=== PATIENT | male | born 1975 | race Caucasian/White ===

== ENCOUNTER 2021-07-18 20:03 | Inpatient (IN) | payer BC ==
[~2021-07-18] VITALS: Ht 182.9 cm; Wt 122.5 kg
[~2021-07-18 20:03] MED LIST: IBUPROFEN800 MG PO; NORCO 5-325 TA1 EACH PO
[2021-07-18 21:05] LABS: HEMOGLOBIN 15.7 gm/dl (14.0-17.5); RED BLOOD COUNT 4.99 M/UL (4.20-5.50); WHITE BLOOD COUNT 1.9 K/UL (4.5-11.0)
[2021-07-18 21:22] LABS: BUN/CREATININE RATIO 14 (0-10)
[2021-07-19] MEDS ORDERED: ASPIRIN CHEWABL81 MG PO (01:06)
[2021-07-19] MEDS ORDERED: DOXYCYCLINE HY100 M2 PO (01:06)
[2021-07-19] MEDS ORDERED: DECADRON6 MG PO (01:06)
[2021-07-19] MEDS ORDERED: BLOOD TEST (01:13)
[2021-07-19] MEDS ORDERED: ADULT LOW DOSE81 MG PO (11:19)
[2021-07-19] MEDS ORDERED: PREDNISONE10 M1 PO (11:20)
[2021-07-19] MEDS ORDERED: ADVAIR HFA 230/1 INH INH (11:22)
[2021-07-19] MEDS ORDERED: TESTOSTERO200 MG/1 M IM (11:22)
[2021-07-19] MEDS ORDERED: METFORMIN HCL500 MG PO (11:23)
[2021-07-20 06:23] LABS: HEMOGLOBIN 14.2 gm/dl (14.0-17.5); RED BLOOD COUNT 4.66 M/UL (4.20-5.50)
[2021-07-20 06:28] LABS: WHITE BLOOD COUNT 3.9 K/UL (4.5-11.0)
[2021-07-20 06:44] LABS: BUN/CREATININE RATIO 21 (0-10)
[2021-07-21 08:06] LABS: HEMOGLOBIN 13.8 gm/dl (14.0-17.5); RED BLOOD COUNT 4.72 M/UL (4.20-5.50)
[2021-07-21 08:11] LABS: BUN/CREATININE RATIO 25 (0-10)
[2021-07-21 08:14] LABS: WHITE BLOOD COUNT 5.6 K/UL (4.5-11.0)
[2021-07-22 12:02] LABS: HEMOGLOBIN 14.1 gm/dl (14.0-17.5); RED BLOOD COUNT 4.54 M/UL (4.20-5.50); WHITE BLOOD COUNT 7.8 K/UL (4.5-11.0)
[2021-07-22 12:29] LABS: BUN/CREATININE RATIO 28 (0-10)
[2021-07-23] MEDS ORDERED: AZITHROMYCIN500 MG PO (08:39)
[2021-07-23] MEDS ORDERED: MEDROL DOSEPAK 24 MG PO (08:41)
[2021-07-23] MEDS ORDERED: PROVENTIL HFA6.7 GM INH (08:41)
== END 2021-07-23 13:40 | disposition home or self-care (01) | DRG 871 ==
LOC: ER1 20:03 → CDU 07-19 05:22 → M/S 07-19 05:22
PROVIDERS: Internal Medicine; ADMIT Internal Medicine
PROC: 8E0ZXY6 Isolation (ICD-10-PCS; principal; 2021-07-19)
PROC: XW033E5 Introduction of Remdesivir Anti-infective into Peripheral Vein, Percutaneous Approach, New Technology Group 5 (ICD-10-PCS; 2021-07-19)
PROC: 3E0333Z Introduction of Anti-inflammatory into Peripheral Vein, Percutaneous Approach (ICD-10-PCS; 2021-07-19)
PROC: XW033G6 Introduction of REGN-COV2 Monoclonal Antibody into Peripheral Vein, Percutaneous Approach, New Technology Group 6 (ICD-10-PCS; 2021-07-19)
DX: A41.89 Other specified sepsis (principal); U07.1 COVID-19; J12.82 Pneumonia due to coronavirus disease 2019; J96.01 Acute respiratory failure with hypoxia; E87.1 Hypo-osmolality and hyponatremia; R65.20 Severe sepsis without septic shock; E11.65 Type 2 diabetes mellitus with hyperglycemia; E66.01 Morbid (severe) obesity due to excess calories; J45.909 Unspecified asthma, uncomplicated; Z98.890 Other specified postprocedural states; Z80.1 Family history of malignant neoplasm of trachea, bronchus and lung; Z79.82 Long term (current) use of aspirin; Z79.84 Long term (current) use of oral hypoglycemic drugs; Z79.899 Other long term (current) drug therapy; Z23 Encounter for immunization; Z68.36 Body mass index [BMI] 36.0-36.9, adult
CPT/HCPCS: 36415; 36600; 71045; 80053; 82803; 82962; 83605; 83615; 83690; 85025; 85027; 85379; 86140; 87040; 94640; 94664; 94760; 96374; 96375; 97161; 99285; J0456; J0696; J1100; J1650; J7030; M0243; Q9967; U0002

== ENCOUNTER → 2021-08-12 | Outpatient (CLI) | payer BC ==
[~2021-08-12] MED LIST changes: +ADULT LOW DOSE81 MG PO; +ADVAIR HFA 230/1 INH INH; +ASPIRIN CHEWABL81 MG PO; +AZITHROMYCIN500 MG PO; +BLOOD TEST; +DECADRON6 MG PO; +DOXYCYCLINE HY100 M2 PO; +MEDROL DOSEPAK 24 MG PO; +METFORMIN HCL500 MG PO; +PREDNISONE10 M1 PO; +PROVENTIL HFA6.7 GM INH; +TESTOSTERO200 MG/1 M IM
== END ==
LOC: HEART 5 14:07
DX: J45.909 Unspecified asthma, uncomplicated (principal)
CPT/HCPCS: 94010

== ENCOUNTER 2021-09-15 16:57 | Emergency (ER) | payer SELFPAY ==
[2021-09-15] MEDS ORDERED: CEPHALEXIN500 MG PO (17:37)
== END 2021-09-15 17:47 | disposition home or self-care (01) ==
LOC: ER1 16:57
DX: S60.552A Superficial foreign body of left hand, initial encounter (principal); E11.9 Type 2 diabetes mellitus without complications; J45.909 Unspecified asthma, uncomplicated; Y92.009 Unspecified place in unspecified non-institutional (private) residence as the place of occurrence of the external cause
CPT/HCPCS: 99283

== ENCOUNTER → 2022-03-25 | Outpatient (CLI) | payer BC ==
[~2022-03-25] MED LIST changes: +CEPHALEXIN500 MG PO
== END ==
LOC: KOH-I 12:01
DX: M25.511 Pain in right shoulder (principal); M19.011 Primary osteoarthritis, right shoulder
CPT/HCPCS: 73030